=== PATIENT | female | born 1970 | race American Indian/Alaskan Native ===

== ENCOUNTER 2019-08-16 15:03 | Emergency (ER) | payer BC ==
[2019-08-16 15:11] VITALS: BP 178/99
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
== END 2019-08-16 16:50 | disposition left against medical advice (07) ==
LOC: ED 15:03
DX: M54.9 Dorsalgia, unspecified (principal); V89.2XXA Person injured in unspecified motor-vehicle accident, traffic, initial encounter; Y93.89 Activity, other specified; Y92.89 Other specified places as the place of occurrence of the external cause; Y99.8 Other external cause status
CPT/HCPCS: 99281